=== PATIENT | male | born 1995 | race Two or more races ===

== ENCOUNTER 2023-03-21 22:50 | Emergency (ER) | payer BC, OTHER ==
[~2023-03-21] VITALS: Ht 162.6 cm; Wt 109.0 kg
[2023-03-21 23:23] VITALS: BP 137/78; PULSE 63; RESP 18; TEMP 97.4; O2SAT 95
[2023-03-21] MEDS ORDERED: IBUP-1455 PO (23:55)
[2023-03-21] MEDS ORDERED: CEPH500C PO (23:55)
[2023-03-22] MEDS ORDERED: KETOROLAC TROMETH 60MG/2ML VIAL IM ONE
[2023-03-22] MEDS ORDERED: HYDROcodone-ACET 5/325MG TAB PO ONE
[2023-03-22] MEDS ORDERED: CEPHALEXIN 250 MG CAP PO ONE
== END 2023-03-22 00:25 | disposition home or self-care (01) ==
LOC: ER 22:50
DX: K04.7 Periapical abscess without sinus (principal); K02.9 Dental caries, unspecified
CPT/HCPCS: 96372; 99283; J1885